=== PATIENT | male | born 1960 | race Caucasian/White ===

== ENCOUNTER 2023-06-25 09:33 | Outpatient (CLI) | payer OTHER ==
--- NOTE | 2023-06-25 14:02 | MRI Report ---
PROCEDURE: KNEE WO - RT INDICATIONS: RIGHT KNEE PAIN TECHNIQUE: Noncontrast sagittal PD fast spin echo and T2 fast spin echo with fat saturation, sagittal 3-D spoile d GE with fat saturation; coronal T1 spin echo and PD fast spin echo with fat saturation, and axial P D fast spin echo with fat saturation through the knee. COMPARISON: None. FINDINGS: Image quality: Excellent. Anterior cruciate ligament: Intact. Posterior cruciate ligament: Fluid signal intensity is seen within the posterior cruciate ligament, which is suspicious for partial tearing. Some of the ligament fibers remain in continuity. Medial collateral ligament: Intact. Lateral collateral ligament: Intact. Medial meniscus: Intact. Lateral meniscus: Diffuse complex tearing of the lateral meniscus is seen with a horizontal oblique components extending to the tibial and fibular articular surfaces anteriorly mildly displaced menisca l flap is seen extending to the medial femoral gutter. Medial and lateral tendons: The semimembranosus tendon insertions appear intact. Visualized portion s of the pes anserinus tendons appear normal. The popliteus tendon appears intact. Iliotibial band appears normal. Anterior structures: Nondisplaced quadriceps tendinosis with superior patellar enthesophyte formatio n. Patellar tendon is intact. No patellar subluxation. No femoral trochlear dysplasia or ventral tro chlear prominence. No edema in the infrapatellar fat pad. Bones: No acute trabecular bone injury or fracture. Medial femorotibial cartilage: Mild partial thickness cartilage thinning throughout the weightbearin g portion of the medial femorotibial compartment Lateral femorotibial cartilage: Full-thickness cholelithiasis see any significant posterior repair p ortion of the lateral tibial plateau with marginal osteophyte formation. Patellofemoral cartilage: Mild partial thickness surface cartilage irregularity. Soft tissues: There is a small joint effusion. There is a trace medial popliteal cyst. The musculat ure surrounding the knee is normal in bulk. IMPRESSION: 1.Partial tearing of the posterior cruciate ligament. Some of the ligament fibers remain in continuit y. 2.Diffuse complex tearing of the lateral meniscus with horizontal oblique components extending to the femoral and tibial articular surfaces throughout the meniscus and a superiorly displaced meniscal fl ap component at the meniscal body. 3.Moderate area of full-thickness cartilage loss in the lateral compartment of the central posterior repair portion of the lateral tibial plateau. Grade II chondromalacia is seen in the medial and anter ior compartments. 4.Mild distal quadriceps tendinosis. 5.Small joint effusion. Reviewed by: Wilman Meadows MD on 06/25/2023 2:00 PM PDT Approved by: Wilman Meadows MD on 06/25/2023 2:00 PM PDT Station ID: [id number]
== END 2023-06-25 09:34 | disposition home or self-care (01) ==
LOC: DI 09:33
DX: S83.521A Sprain of posterior cruciate ligament of right knee, initial encounter (principal); S83.271A Complex tear of lateral meniscus, current injury, right knee, initial encounter; S83.281A Other tear of lateral meniscus, current injury, right knee, initial encounter; M94.261 Chondromalacia, right knee; M67.863 Other specified disorders of tendon, right knee; M25.461 Effusion, right knee

== ENCOUNTER 2024-01-17 16:11 | Outpatient (CLI) | payer OTHER ==
[2024-01-17] MEDS ORDERED: GADOTERATE MEGLUMINE 7.5 MMOL/15 ML VIAL ONE (16:25)
[2024-01-17] MEDS: GADOTERATE MEGLUMINE 7.5 MMOL/15 ML VIAL IVP ONE (18:25)
--- NOTE | 2024-01-21 14:56 | MRI Report ---
Knee RT W/WO CLINICAL INFORMATION: 63 years of age, Male, KNEE PAIN AND FULLNESS. COMPARISON: Prior right knee MRI, 06/25/2023 Technique: Multisequence, multiplanar MRI of the right knee was performed prior to and after intraven ous contrast. FINDINGS: Menisci: The medial meniscus is unremarkable. In the lateral meniscus, there is interval development of complete tear of the posterior root. Additional near maceration of the lateral meniscus body, with the superior extent in the meniscus flap, unchanged from prior exam. Cruciate ligaments: The ACL is intact. Partial tear of the PCL, unchanged from prior exam. MCL/LCL: The MCL is unremarkable. The biceps femoris tendon is unremarkable. The fibular collateral ligament is unremarkable. The iliotibial band is intact. The popliteus muscle and tendon also appear intact. Extensor mechanism: The quadricep tendon is unremarkable. The patella tendon is unremarkable. Mild pr epatellar subcutaneous edema. Patellofemoral joint: Alignment within the patellofemoral joint is normal. The patellofemoral ligame nts are intact. Full-thickness chondral fissuring in the medial patellar facet. Cartilage of the troc hlea is unremarkable. Cartilage and bone: In the medial compartment, the cartilage is well-maintained. In the lateral merlin rtment, there is high-grade chondral loss in the weightbearing portion of the femoral condyle, grossl y unchanged from prior exam. There is high-grade chondral loss in the lateral tibial plateau as well with associated marrow edema, unchanged from prior exam. No acute fracture. Miscellaneous: Small knee effusion. No popliteal cyst. No intra-articular bodies are identified. Norm al muscle signal intensity and morphology. No vascular anomaly. IMPRESSION: 1.Interval development complete tear of the posterior root of the lateral meniscus. Near maceration o f the lateral meniscus body, unchanged from prior exam. 2.Partial tear of the PCL, unchanged. 3.Moderate chondrosis of the lateral compartment, unchanged. Reviewed by: Velma Francis MD on 01/18/2024 8:42 PM PDT Approved by: Velma Francis MD on 01/18/2024 8:42 PM PDT Station ID: [id number]
== END 2024-01-17 16:12 | disposition home or self-care (01) ==
LOC: DI 16:11
PROVIDERS: ATTEND Orthopaedic Surgery
DX: S83.281A Other tear of lateral meniscus, current injury, right knee, initial encounter (principal); S83.521D Sprain of posterior cruciate ligament of right knee, subsequent encounter; M94.261 Chondromalacia, right knee